=== PATIENT | female | born 1965 | race Hispanic/Latino ===

== ENCOUNTER 2017-12-11 06:40 | Day surgery (SDC) | payer OTHER ==
[2017-12-10 09:28] VITALS: BMI 47.7
[2017-12-11] MEDS ORDERED: Midazolam 2 MG/2 ML VIAL ONE ×2 (08:45→09:49)
[2017-12-11] MEDS ORDERED: Propofol 10 mg/ml Inj (20 ML) ONE (08:46)
[2017-12-11] MEDS ORDERED: HYDROmorphone 0.5 mg/0.5 ml ISec IVP PRN (10:08)
[2017-12-11 11:56] VITALS: RESP 18
[2017-12-11 12:46] VITALS: BP 155/86; PULSE 79; TEMP 97.8; O2SAT 99
--- NOTE | 2017-12-13 06:28 | OP ---
PROCEDURE DATE: 12/11/2017 PREOPERATIVE DIAGNOSIS: A 52-year-old 0 para 0 with abnormal uterine bleeding. POSTOPERATIVE DIAGNOSIS: A 52-year-old 0 para 0 with abnormal uterine bleeding with endometrial polyp. SURGEON: Rocco Kruger MD WELL PULLER HEAD: None. TYPE OF ANESTHESIA: General. ANESTHESIOLOGIST: Thierry Pyle PROCEDURE PERFORMED: MyoSure, dilatation and curettage, hysteroscopy. DEFICIT: 200 mL. ESTIMATED BLOOD LOSS: 20 mL DESCRIPTION OF PROCEDURE: After informed consent was obtained, the patient was brought to the operating room, placed on the table well. General anesthesia was given. Once the anesthesia was given, the patient was prepped and draped in normal sterile fashion. Examination of the uterus revealed it to be 6 weeks size. No pelvic or adnexal masses. Anterior lip of the cervix was grasped with a tenaculum. Gentle dilatation of the cervix was done. After that, ____ polyp was found on the posterior wall of the uterus. Picture was taken. Then the MyoSure was used to take out the polyp out. Sharp curettage of anterior [place] of the uterus done. ECC and EMC were sent to pathology. After that, hysteroscope was introduced, polyp was not found. After that, tenaculum was taken out from anterior lip of the cervix. The patient tolerated the procedure well. Lap, sponge, and instrument counts were correct x2. Rocco Kruger MD
== END 2017-12-11 12:30 | disposition home or self-care (01) ==
LOC: C.SDS 06:40
PROVIDERS: ATTEND Obstetrics & Gynecology
DX: N84.0 Polyp of corpus uteri (principal); N92.4 Excessive bleeding in the premenopausal period; I10 Essential (primary) hypertension; E66.01 Morbid (severe) obesity due to excess calories; R93.8 Abnormal findings on diagnostic imaging of other specified body structures; Z68.42 Body mass index [BMI] 45.0-49.9, adult
CPT/HCPCS: 58558; 88305; J1885; J2001; J2250; J2405; J2704; J3010